=== PATIENT | male | born 1960 | race Hispanic/Latino ===

== ENCOUNTER 2018-07-31 11:46 | Emergency (ER) | payer OTHER ==
[2018-07-31 11:56] VITALS: BP 158/93; PULSE 98; RESP 18; TEMP 98; O2SAT 96
[2018-07-31] MEDS ORDERED: Lidocaine/Prilocaine 2.5%-2.5% Cream (5 gm) TOP STA (12:31)
--- NOTE | 2018-07-31 12:31 | C.PDOC ---
History Of Present Illness 57 y/o male, with history of intellectual disability, seizures, anxiety, psychosis, MS, high cholesterol, and OCD, presents to ED with caregiver complaining of swelling to his left 5th digit. Patient states that he "banged" his finger the other day and since then hes been experiencing pain. Caregiver states she is unsure when he hit his hand; however, she reports that he has a tendency of biting his nails, and is concerned he may have an infection. Patient does admit to biting his nails. Otherwise he denies any fever, chills, paresthesia, or weakness of his hand. Time Seen by Provider: 07/31/18 12:00 Chief Complaint (Nursing): Finger,Hand,&Wrist History Per: Patient, Other (Caregiver) History/Exam Limitations: no limitations Onset/Duration Of Symptoms: Unknown Current Symptoms Are (Timing): Still Present Past Medical History Reviewed: Historical Data, Nursing Documentation, Vital Signs Vital Signs: Last Vital Signs Temp 98 F 07/31/18 11:49 Pulse 98 H 07/31/18 11:49 Resp 18 07/31/18 11:49 BP 158/93 H 07/31/18 11:49 Pulse Ox 96 07/31/18 11:49 - Medical History PMH: Anxiety, Hypercholesterolemia, Seizures Family History: States: No Known Family Hx - Social History Hx Alcohol Use: No Hx Substance Use: No - Immunization History Hx Tetanus Toxoid Vaccination: No Hx Influenza Vaccination: No Hx Pneumococcal Vaccination: No Review Of Systems Constitutional: Negative for: Fever, Chills Musculoskeletal: Positive for: Other (Swelling of left 5th digit). Negative for: Neck Pain, Arm Pain Neurological: Negative for: Weakness, Other (paresthesia) Physical Exam - Physical Exam Appears: Non-toxic, No Acute Distress Skin: Warm, Dry Head: Atraumatic, Normacephalic Eye(s): bilateral: Normal Inspection Oral Mucosa: Moist Extremity: Tenderness, Capillary Refill (less than 2 seconds), No Deformity, Swelling, Other (Left 5th digit is erythematous and edematous; at the base of the nail, there is fluctant pus-like fluid) Extremity: Bilateral: Normal Color And Temperature, Normal ROM Pulses: Left Brachial: Normal, Right Brachial: Normal, Left Radial: Normal, Right Radial: Normal Neurological/Psych: Oriented x3, Normal Motor, Normal Sensation ED Course And Treatment O2 Sat by Pulse Oximetry: 96 (RA) Pulse Ox Interpretation: Normal - Other Rad left hand/5th digit X-Ray: Viewed By Me, Read By Radiologist Interpretation: Accession No. : [id number]. Patient Name / ID : CHRISTI DONALD / [id number]. Exam Date : 07/31/2018 12:08:08 ( Approved ). Study Comment : Sex / Age : M / [id number]. Creator : Antwan Nolasco MD. Dictator : Antwan Nolasco MD. Technical Documentation Specialist : Bobbin Washer : Antwan Nolasco MD. Approver2 : Report Date : 07/31/2018 13:03:22. My Comment : . Date of service: 07/31/2018. PROCEDURE: Left small finger radiographs. HISTORY: swelling/pain. COMPARISON: None. TECHNIQUE: AP radiograph of the left hand, as well as spot oblique and lateral images of left small finger were obtained. FINDINGS: LEFT SMALL FINGER: Left small finger normal, without fracture of focal lesion. Remainder of the left hand (as seen on the AP view) is grossly unremarkable. JOINTS: Normal. SOFT TISSUES: Normal. OTHER FINDINGS: None. IMPRESSION: Normal left small finger radiographs. - Incision & Drainage Of Abscess Anesthesia: Lidocaine 1% (topical EMLA) Prep Used: Betadine Procedure: Incised W/Scalpel Blade#: (15), Drained Pus, Irrigated Cavity W/Saline Medical Decision Making Medical Decision Making: Patient tolerated procedure well Xray neg for dislocation or fracture of left 5th digit Keflex given now and will continue as outpatient Caregiver verbalized understanding and is in agreement with plan Patient is stable for discharge Disposition Counseled Patient/Family Regarding: Studies Performed, Diagnosis, Need For Followup, Rx Given - Disposition Referrals: [facility] [Outside] Disposition: HOME/ ROUTINE Disposition Time: 12:55 Condition: IMPROVED Additional Instructions: Continue Keflex twice a day for 10 days replace bandaid daily until antibiotics are completed Follow up with PMD in 1-2 days Return to ED if symptoms worsen Prescriptions: Cephalexin [Keflex] 500 mg PO BID #14 capsule Instructions: Paronychia (DC) Forms: [employer] [facility] (Estonian) - Clinical Impression Clinical Impression: Paronychia - PA / CENTER RECEPTIONIST / Resident Statement MD/DO has reviewed & agrees with the documentation as recorded. - Scribe Statement The provider has reviewed the documentation as recorded by the Scribe Kristy Sherman All medical record entries made by the Scribshivani were at my direction and personally dictated by me. I have reviewed the chart and agree that the record accurately reflects my personal performance of the history, physical exam, medical decision making, and the department course for this patient. I have also personally directed, reviewed, and agree with the discharge instructions and disposition.
--- NOTE | 2018-07-31 13:07 | RAD ---
Date of service: 07/31/2018 PROCEDURE: Left small finger radiographs. HISTORY: swelling/pain COMPARISON: None. TECHNIQUE: AP radiograph of the left hand, as well as spot oblique and lateral images of left small finger were obtained. FINDINGS: LEFT SMALL FINGER: Left small finger normal, without fracture of focal lesion. Remainder of the left hand (as seen on the AP view) is grossly unremarkable. JOINTS: Normal. SOFT TISSUES: Normal. OTHER FINDINGS: None. IMPRESSION: Normal left small finger radiographs.
== END 2018-07-31 13:02 | disposition home or self-care (01) ==
LOC: C.ER 11:46
DX: L03.012 Cellulitis of left finger (principal)

== ENCOUNTER 2018-09-10 19:32 | Emergency (ER) | payer OTHER ==
[2018-09-10 19:46] VITALS: BP 125/89; PULSE 116; TEMP 97.9; O2SAT 96
--- NOTE | 2018-09-10 20:41 | C.PDOC ---
History Of Present Illness 57 year old male with developmental delay presents to ED s/p hitting his head and sustaining a laceration 1 hour [employer]END[employer]. According to the field nurse case manager at bed side, he bumped his head on the door. Patient is not currently taking any anticoagulants. Patient denies loss of consciousness, vomiting, vision changes, numbness, and weakness. Time Seen by Provider: 09/10/18 19:53 Chief Complaint (Nursing): Abnormal Skin Integrity History Per: Patient History/Exam Limitations: no limitations Onset/Duration Of Symptoms: Hrs (1) Current Symptoms Are (Timing): Still Present Location Of Injury: Left: Hand (laceration), Anterior: Hand Past Medical History Reviewed: Historical Data, Nursing Documentation, Vital Signs Vital Signs: Last Vital Signs Temp 97.9 F 09/10/18 19:38 Pulse 116 H 09/10/18 19:38 Resp 18 09/10/18 19:38 BP 125/89 09/10/18 19:38 Pulse Ox 96 09/10/18 19:38 Primary Care Provider: Non [facility] Provider, - Medical History PMH: Anxiety, Hypercholesterolemia, Seizures Denies: Chronic Kidney Disease Surgical History: No Surg Hx Family History: States: Unknown Family Hx - Social History Hx Alcohol Use: No Hx Substance Use: No - Immunization History Hx Tetanus Toxoid Vaccination: No Hx Influenza Vaccination: No Hx Pneumococcal Vaccination: No Review Of Systems Constitutional: Negative for: Fever, Chills, Weakness Eyes: Negative for: Vision Change ENT: Positive for: Other (laceration to the left side of the occipital scalp) Gastrointestinal: Negative for: Vomiting Neurological: Negative for: Weakness, Numbness, Other (loss of consciousness) Physical Exam - Physical Exam Appears: Non-toxic, No Acute Distress Skin: Normal Color, Warm, Dry Head: No Tenderness, No Swelling, Laceration (4.5 cm linear laceration to the left occipital scalp) Eye(s): bilateral: Normal Inspection, PERRL, EOMI Nose: Normal Neck: Normal ROM, Supple Chest: Symmetrical, No Deformity Cardiovascular: Rhythm Regular, No Murmur Respiratory: No Accessory Muscle Use, No Rales, No Rhonchi, No Wheezing Gastrointestinal/Abdominal: Soft, No Tenderness Extremity: Capillary Refill (<2 seconds) Neurological/Psych: Oriented x3, Normal Speech, Normal Cognition, Cerebellar Signs, Normal Motor ED Course And Treatment O2 Sat by Pulse Oximetry: 96 Laceration - Laceration Repair Left Occipital Scalp Wound Length (In cm): 4.5 Description Of Wound: Linear Wound Cleansed With: Sterile Saline Wound Examination: Irrigated With Saline Wound Closure: Sandy (6) Wound Complexity: Simple Medical Decision Making Medical Decision Making: Initial Plan: Sandy placed to the occipital scalp. Nitrous used to assist in procedures. 6 sandy placed. On re-exam, the patient is awake and alert. Drum Stenciler reports that the patient is at baseline mental status. Ambulatory in the Ed with steady gait. Disposition - Disposition Referrals: [facility] [Outside] [facility] [Outside] Disposition: HOME/ ROUTINE Disposition Time: 20:39 Condition: GOOD Additional Instructions: kEEP THE WOUND DRY FOR 2 DAYS. WASH WITH SOAP AND WATER SANDY TO BE REMOVED IN 10 DAYS. RETURN SOONER IF WORSENED. Instructions: Laceration Repair With Reading (DC) Forms: [employer] (Bermudian) - Clinical Impression Clinical Impression: Laceration of head, Head injury - PA / PRESSURE TESTING TECHNICIAN / Resident Statement MD/DO has reviewed & agrees with the documentation as recorded. (Melissa Jenkins) - Scribe Statement The provider has reviewed the documentation as recorded by the Scribe (Melissa Jenkins) All medical record entries made by the Scribe were at my direction and personally dictated by me. I have reviewed the chart and agree that the record accurately reflects my personal performance of the history, physical exam, medical decision making, and the department course for this patient. I have also personally directed, reviewed, and agree with the discharge instructions and disposition.
[2018-09-10 20:51] VITALS: RESP 20
== END 2018-09-10 20:49 | disposition home or self-care (01) ==
LOC: C.ER 19:32
DX: S01.01XA Laceration without foreign body of scalp, initial encounter (principal); W22.8XXA Striking against or struck by other objects, initial encounter

== ENCOUNTER 2018-09-11 19:01 | Emergency (ER) | payer OTHER | END 2018-09-11 19:44 | disposition home or self-care (01) | LOC: C.ER 19:01 ==

== ENCOUNTER 2018-09-20 17:33 | Emergency (ER) | payer OTHER ==
--- NOTE | 2018-09-20 18:30 | C.PDOC ---
History Of Present Illness 57 y/o male brought from residential home for staple removal, placed 10 days ago. denies any complaints, no headache. Time Seen by Provider: 09/20/18 17:54 Chief Complaint (Nursing): Suture/Staple Removal History Per: Patient, Other (counselor) History/Exam Limitations: no limitations Onset/Duration Of Symptoms: Days Ago (10) Current Symptoms Are (Timing): Better Location Of Injury: Left: Head Severity: None Past Medical History Reviewed: Historical Data, Nursing Documentation, Vital Signs Vital Signs: Last Vital Signs Temp 98.1 F 09/20/18 17:43 Pulse 74 09/20/18 17:43 Resp 20 09/20/18 17:43 BP 128/86 09/20/18 17:43 Pulse Ox 98 09/20/18 17:43 Primary Care Provider: Non [facility] Provider, - Medical History PMH: Anxiety, Hypercholesterolemia, Seizures Denies: Chronic Kidney Disease Family History: States: Unknown Family Hx - Social History Hx Alcohol Use: No Hx Substance Use: No - Immunization History Hx Tetanus Toxoid Vaccination: No Hx Influenza Vaccination: No Hx Pneumococcal Vaccination: No Physical Exam - Physical Exam Appears: Non-toxic, No Acute Distress Skin: Warm, Dry Head: Normacephalic, Other (6 sonny in left side scalp, well healed incision. ) Eye(s): bilateral: Normal Inspection Neck: Supple ED Course And Treatment O2 Sat by Pulse Oximetry: 98 Medical Decision Making Medical Decision Makin sonny easily removed; no signs of infection. d/c home Disposition Counseled Patient/Family Regarding: Diagnosis, Need For Followup - Disposition Disposition: HOME/ ROUTINE Disposition Time: 18:29 Condition: GOOD Additional Instructions: Follow up with your medical doctor in a few days. Instructions: Staple Removal Forms: [facility] (Lithuanian), General Discharge Instructions - Clinical Impression Clinical Impression: Removal of sonny
[2018-09-20 18:45] VITALS: BP 128/80; PULSE 72; RESP 14; TEMP 98.4
[2018-09-20 19:11] VITALS: O2SAT 98
== END 2018-09-20 18:52 | disposition home or self-care (01) ==
LOC: C.ER 17:33
DX: Z48.02 Encounter for removal of sutures (principal)